=== PATIENT | male | born 2005 | race African-American/Black ===

== ENCOUNTER 2024-08-19 08:48 | Outpatient (REF) | payer OTHER, SELFPAY ==
--- NOTE | ~2024-08-19 | XR_ITS ---
EXAMINATION: XR CHEST CLINICAL INFORMATION: R05.9 - Cough, unspecified COMPARISON: None available. TECHNIQUE: 2 views of the chest were obtained. FINDINGS: No consolidation, pleural effusion or pneumothorax. Cardiomediastinal silhouette is normal. Osseous structures are intact. XR/XR chest 2V IMPRESSION: No acute airspace disease. Electronically signed by: Vahe Ly MD 08/19/2024 10:05 AM EDT
--- OUTSIDE RECORDS SUMMARY | 2024-08-19 10:02 | XMS_ITS | Clinical Summary ---
Author Organization [employer] Address [address] [place] [address] [address] [place] [address] Care Team Providers Care Sales Contractor Name Role Phone Dameon Sena MD Primary Care Provider [phone] Allergies Active Allergy Reactions Criticality Noted Date [...] patient's age to complete this topic Insurance [facility] [place] STANDARD [facility] Care Teams Sales Contractor Relationship Specialty Start Date End Date Dameon Sena MD [address] [place] [id number] PCP - General Pediatrics 08/12/23
== END 2024-08-19 08:49 | disposition home or self-care (01) ==
LOC: HO.HMGCX 08:48
PROVIDERS: Visit Provider Nurse Practitioner Family
DX: R05.9 Cough, unspecified (principal); Z20.89 Contact with and (suspected) exposure to other communicable diseases; R06.2 Wheezing
CPT/HCPCS: 71046; 99212

== ENCOUNTER → 2024-08-19 08:48 | Outpatient (AMB) | payer OTHER, SELFPAY ==
--- NOTE | 2024-08-19 08:50 | AM.OFFWIN_ITS ---
Intake Vital Signs 08/19/24 08:56 Height 5 ft 11 in Weight 233 lb BMI 32.5 BP 124/70 Blood Pressure Location Rt brachial Position Sitting Respiration 13 Pulse 70 Pulse Source Pulse Oximeter Temp 97.3 F Temp Source Oral Pulse Oximetry (%) 96 Oxygen Delivery Method Simple Mask Intake Visit Reasons: SINUS INFECTION/COUGH Intake Note: Patient c/o coughing, chest congestion x 1week. Patient brother got dx walking pneumonia last Friday Patient Tobacco Use Status: Never used Tobacco Meat Blender Required: No Allergies Penicillins Allergy (Severe, Verified 08/19/24 08:58) Unknown Medication List - Last Reconciled 08/19/24 by Aubree Mullen, DRAKE- No Known Home Meds Do you need a note to return to daycare/school/sports/work: No HPI HPI Comments History of Present Illness Details [facility] PCP Dr Sena at [facility] Peds History - The patient is a 18-year-old male pres enting with chest congestion for one week. Reports URI sx that started > 1 week ago. All sx have resolved w/ exception of the cough. - He notes that his brother had walking pneumonia diagnosed last Friday - Primary symptom is persistent coughing , and he reports no fever, chills, runny nose, or sore throat. - Hx of childhood asthma, only bothersom e during acute illness. does not have inhaler at home - he did not get a flu shot this year. - Initially used sinus medication (Alleg ra) without improvement in congestion. - Reports a penicillin allergy. - The patient is a non-smoker Physical Exam General: Awake, alert. No apparent distress Eyes: Sclera and conjunctiva clear bilaterally Nose: Nares w/ scant yellow drainage, turbinates edematous on R only, no sinus tenderness with palpation bilaterally Ears: Tympanic membranes intact and clear bilaterally Throat: Moist mucosa membrane, pharynx within normal limits Cardiovascular: Regular rate and rhythm Respiratory: coarse ins/exp wheeze RLL, congested cough w/o distress; other lung davis clear Discussion Notes I discussed with the patient the possibility of pneumonia as an underlying cause for his chest congestion and coughing. Due to the absence of fever and other typical flu-like symptoms, I recommended a chest x-ray to confirm the diagnosis. Unfortunately, our current location lacks x-ray facilities, so I explained the need to visit Ze I emphasized the quick turnaround of getting results within an hour to plan the appropriate interventions, potentially involving antibiotics. I advised on the use of a rescue inhaler, specifically levalbuterol, to manage airway clearance and reduce coughing. I instructed them on its usage, emphasizing scheduled relief rather than symptomatic use. I checked contact details for sharing results post-x-ray. Follow-up instructions were provided should the pneumonia be confirmed, involving primary care consultation for potential further evaluation. Travel directions, the importance of efficient imaging service access, and expected turnaround were shared. We also reviewed the significance of seeking follow-up if the x-ray report confirms pneumonia to ensure complete recovery. Assessment and Plan 1. Chest Congestion: Suspected pneumonia , pending chest x-ray for confirmation. Instructed patient on using albuterol inhaler regularly to facilitate airway clearance. Plan to review imaging results promptly for further management decisions, including potential antibiotic use. Follow-up to be determined based on x-ray findings. 2. Pneumonia: If x-ray confirms pneumoni a, plan includes antibiotics. Advise follow-up with primary care for a recheck in three to four weeks to ensure full recovery and exclude complications. Patient Instructions - Use your albuterol inhaler two puffs e very 4 to 6 hours. - Head to the specified location for you r chest x-ray. - Await a callback within an hour for x- ray results. - Seek follow-up with your primary care doctor if pneumonia is confirmed. - Monitor symptoms and report any worsen ing to your healthcare provider. Consent Patient was informed and verbally consented to the use of an ambient scribe for clinic note documentation during this visit. Total time spent caring for the patient today was 30 minutes. This includes time spent before the visit reviewing the chart, time spent during the visit, and time spent after the visit on documentation, reviewing laboratory results, diagnostic imaging, medications, performing a medically necessary evaluation, counseling on diagnoses, care coordination, ordering appropriate tests, ordering appropriate medications, review of tests performed by other providers, reporting test results with the patient, communication with other healthcare providers. [facility] Social History Patient Tobacco Use Status: Never used Tobacco Physical Exam Vital Signs: Last Vital Signs Temp 97.3 F 08/19/24 08:56 Pulse 70 08/19/24 08:56 Resp 13 08/19/24 08:56 BP 124/70 08/19/24 08:56 Pulse Ox 96 08/19/24 08:56 Oxygen Delivery Method Simple Mask 08/19/24 08:56 BMI result Body Mass Index 32.5 Assessment & Plan Assessment & Plan (1) Cough: Code(s): R05.9 - Cough, unspecified Qualifiers: Cough type: acute Qualified Code(s): R05.1 - Acute cough (2) Exposure to pneumonia: Code(s): Z20.89 - Contact with and (suspected) exposure to other communicable diseases (3) Wheezing: Code(s): R06.2 - Wheezing (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 Orders: Orders XR chest 2V Today R05.9 - Cough, unspecified, R06.2 - Wheezing, Z20.89 - Contact with and (suspected) exposure to other communicable diseases Medications: New levalbuterol tartrate 45 mcg/actuation 2 puffs inhalation Q4-6H PRN 15 grams 0RF shortness of breath Patient Instructions: Patient Instructions - Use your albuterol inhaler two puffs every 4 to 6 hours. - Head to the specified location for your chest x-ray. - Await a callback within an hour for x-ray results. - Seek follow-up with your primary care doctor if pneumonia is confirmed. 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
[2024-08-19 08:56] VITALS: BP 124/70; PULSE 70; RESP 13; TEMP 36.3; O2SAT 96; BMI 32.5
--- OUTSIDE RECORDS SUMMARY | 2024-08-19 08:57 | XMS_ITS | Clinical Summary ---
Author Organization [employer] Address [address] [place] [address] [address] [place] [address] Care Team Providers Care Company Pilot Name Role Phone Dameon Sena MD Primary Care Provider [phone] Allergies Active Allergy Reactions Criticality Noted Date Comments Penicillin G Unknown 04/15/2022 Medications No known medications Active Problems Problem Noted Date Diagnosed Date Exotropia, alternating 04/15/2022 Resolved Problems Problem Noted Date Diagnosed Date Resolved Date Glaucoma suspect, bilateral 04/15/2022 04/23/2022 Social History Tobacco Use Types Packs/Day Years Used Date Smoking Tobacco: Never Tobacco Cessation:Counseling Given: Not Answered Comments:Marijuana every once in a while Sex and Gender Information Value Date Recorded Sex Assigned at Male 06/17/2022 11:01 AM EST Legal Sex Male 8:35 PM EDT Gender Identity Male 06/17/2022 11:01 AM EST Sexual Orientation Choose not to disclose 2022 11:01 AM EST Last Filed Vital Signs Vital Sign Reading Time Taken Comments Blood Pressure 110/72 08/14/2023 2:43 PM EDT Pulse - - Temperature 36.2 ??C (97.1 ??F) 08/14/2023 2:43 PM ED T Respiratory Rate - - Oxygen Saturation - - Inhaled Oxygen Concentration - - Weight - - Height - - Body Mass Index - - Plan of Treatment Health Maintenance Due Date Last Done Comments Chlamydia and Gonorrhea Screening 2003 Depression Screening 2003 HIV Screening 2003 SDOH Screening 2003 Alcohol/Substance Use Screening 2015 Tobacco Screening 2015 Family Planning (PISQ) 12/11/2018 Hepatitis C Screening 12/11/2021 COVID-19 Vaccine ( season) 2024 Influenza Vaccine (#1) 2024 6, 03/23/2014, 02/05/2013 DTaP/Tdap/Td Vaccines (7 - Td or Tdap) 12/14/2025 12/15/2015, 10/12/2008, 10/28/2005, Additional history exists Zoster Vaccines (1 of 2) 12/11/2053 RSV Patients and Patients Aged 60 years or older (1 - 1-dose 75+ series) 12/11/2078 Hepatitis B Vaccines Completed 07/20/2004, 01/25/2004, 2003 HIB Vaccines Completed 11/26/2006, 01/17, 07/20/2004, Additional history exists IPV Vaccines Completed 10/12/2008, 10/17, 04/20/2004, Additional history exists Pneumococcal Vaccine: Pediatrics (0 to 5 Years) and At-Risk Patients (6 to 49) Years) Aged Out 10/09/2010, 10/27/2006, 11/26/2004, Additional history exists No longer eligible based on patient's age to complete this topic HPV Vaccines Completed 05/25/2019, 10/30/2018 Meningococcal Vaccine Completed 04/04/2020, 016 Hepatitis A Vaccines Completed 01/18/2021, 04/04/20 20 RSV under 20 months Aged Out No longe r eligible based on patient's age to complete this topic Rotavirus Vaccines Aged Out No longer eligible based on patient's age to complete this topic Insurance [facility] [place] STANDARD [facility] A[facility] Care Teams Company Pilot Relationship Specialty Start Date End Date Dameon Sena MD [address] [place] [id number] PCP - General Pediatrics 08/12/23
== END ==
LOC: HO.HMCWIW 08:48
PROVIDERS: Visit Provider Nurse Practitioner Family
DX: R05.1 Acute cough (principal); Z20.89 Contact with and (suspected) exposure to other communicable diseases; J45.20 Mild intermittent asthma, uncomplicated

== ENCOUNTER → 2024-08-19 09:36 | Outpatient (BNV) | payer OTHER, SELFPAY | PROVIDERS: Visit Provider Radiology Diagnostic Radiology | DX: R05.9 Cough, unspecified (principal) | CPT/HCPCS: 71046 ==

== ENCOUNTER 2025-03-12 12:42 | Outpatient (AMB) | payer OTHER, SELFPAY ==
--- OUTSIDE RECORDS SUMMARY | 2025-03-12 12:45 | XMS_ITS | Clinical Summary ---
Author Organization [employer] Address [address] [place] [address] [address] [place] [address] Care Team Providers Care Automatic Door Mechanic Name Role Phone Dameon Sena MD Primary Care Provider [phone] Allergies Active Allergy Reactions Criticality Noted Date [...] Sign Reading Time Taken Comments Blood Pressure 122/84 11/03/2024 3:48 PM EDT Pulse - - Temperature 36.2 C (97.1 F) 08/14/2023 2:43 PM EDT Respiratory Rate - - Oxygen Saturation - - Inhaled Oxygen Concentration - - Weight - - Height - - Body Mass Index - - Plan of Treatment Health Maintenance Due Date Last Done Comments Chlamydia and Gonorrhea Screening 2003 Depression Screening 2003 SDOH Screening 2003 Disability Screening 2003 Alcohol/Substance Use Screening 2015 Family Planning (PISQ) 12/11/2018 Meningococcal B Vaccine (1 of 2 - Standard) 2019 COVID-19 Vaccine ( season) 2025 Influenza Vaccine (#1) 2025 6, 03/23/2014, 02/05/2013 Tobacco Screening 11/03/2025 11/03/2024 DTaP/Tdap/Td Vaccines (7 - Td or Tdap) [...] Years) and At-Risk Patients (6 to 49) Years Aged Out 10/09/2010, 10/27/2006, 11/26/2004, Additional history exists No longer eligible based on patient's age to complete this topic HPV Vaccines Completed 05/25/2019, 10/30/2018 Meningococcal Vaccine Completed 04/04/2020, Hepatitis A Vaccines Completed 01/18/2021, 04/04/20 20 HIV Screening Completed 04/28/2023 Hepatitis C Screening Completed 04/28/2023 RSV under 20 months Aged Out No longe r eligible based on patient's age to complete this topic Rotavirus Vaccines Aged Out No longer eligible based on patient's age to complete this topic Insurance [facility] STANDARD [facility] STANDARD [employer] Care Teams Automatic Door Mechanic Relationship Specialty Start Date End Date Dameon Sena MD [address] [place] [id number] PCP - General Pediatrics 08/12/23
--- OUTSIDE RECORDS SUMMARY | 2025-03-12 12:45 | XMS_ITS | Clinical Summary ---
Author Organization [facility] Address [address] [place] [phone] Phone Care Team Providers Care Pantry Worker Name Role Phone Nikki Merchant MD Primary Care Provid er Social History Tobacco Use Types Packs/Day Years Used Date Smoking Tobacco: Never Assessed Education Answer Date Recorded Are you interested in more education? Not on jt e 09/13/2022 Are you concerned about learning? Not on file 09/13/2022 No 09/13/2022 No 09/13/2022 Digital Access Answer Date Recorded No 10/14/2022 No 10/14/2022 No 10/14/2022 Reliable internet access at home? Not on file 10/14/2022 Device with a working camera? Not on file Sex and Gender Information Value Date Recorded Sex Assigned at Not on file Legal Sex Male 12:35 PM EST Gender Identity Not on file Sexual Orientation Not on file Plan of Treatment Not on file Medical Devices Not on file Insurance [facility] [place] [address] [place] [address] [address] [place] [address] [facility] [facility] ACO [facility] A[facility] Care Teams Pantry Worker Relationship Specialty Start Date End Date Nikki Merchant MD [address] [id number] PCP - General Internal Medicine 07/12/15 Additional Source Comments The information contained in this document represents components of the legal health record. It is not the complete legal health record.[facility]
[2025-03-12 12:48] VITALS: BP 130/78; PULSE 86; TEMP 36.9; O2SAT 95
--- NOTE | 2025-03-12 12:48 | AM.OFFWIN_ITS ---
Intake Vital Signs 03/12/25 12:48 Height 5 ft 11 in BMI Reason not done Patient refused/unable BP 130/78 Blood Pressure Location Lt brachial Position Sitting Pulse 86 Pulse Source Pulse Oximeter Temp 98.5 F Temp Source Oral Pulse Oximetry (%) 95 Oxygen Delivery Method Room Air Intake Visit Reasons: EP Cough/ asthma Intake Note: pt is here for cough 1x day, has asthma which is causing difficulty breathing Patient Tobacco Use Status: Never used Tobacco Allergies Penicillins Allergy (Severe, Verified 03/12/25 12:59) Unknown Medication List - Last Reconciled 03/12/25 by Aubree Mullen, ALUMINUM MOLDER- clonidine HCl 0.2 mg PO BEDTIME fluticasone furoate 50 mcg/actuation (Arnuity Ellipta) 1 inh inhalation Q24H levalbuterol tartrate 45 mcg/actuation 2 puffs inhalation Q4-6H PRN magnesium oxide 400 mg PO DAILY riboflavin (vitamin B2) (Vitamin B-2) 100 mg PO BID triamcinolone acetonide 0.1% appl topical BID Do you need a note to return to daycare/school/sports/work: Yes HPI HPI Comments History of Present Illness Details History of Present Illness The patient is a 19-year-old male presenting with exacerbation of asthma. Asthma: - History of asthma; presents with cough and wheezing. - Wheezing increased over the last day. - Inhaler not used due to being misplace d. - Recent onset post-illness Review of Systems - Respiratory: Reports wheezing and coug h. Denies fever or chills. - Other systems: Not discussed. Physical Exam General: Well developed, well nourished, in no acute distress. Appears stated age. Head: Normocephalic, atraumatic. Eyes: Pupils are equal, round and reactive to light and accommodation. Conjunctivae are clear. Vision grossly normal. Lungs: Ins/exp Wheezing noted throughout, tight cough, no distress. No rales or rhonchi. Good air flow in all davis. Heart: Regular rate and rhythm. No murmurs, click, rubs or gallops are noted. Psych: Mood and affect appropriate Discussion Notes I discussed the patient's asthma exacerbation and the importance of having his inhaler available for use. I emphasized the need to start prednisone to manage symptoms. I provided education on using the rescue inhaler every six hours as needed for symptom relief. The potential use of prednisone was detailed, highlighting that if adverse reactions occur, discontinuation would be the option. The patient was advised to take prednisone with food to minimize gastrointestinal side effects. I also outlined that if the prednisone therapy is not well tolerated, he could stop it. Follow-up care was not scheduled but the patient was informed to seek attention if symptoms worsen or fail to improve. Patient was given time to ask questions. All questions were answered to their satisfaction. Assessment and Plan 1. Asthma - Initiate prednisone 1 tablet daily for 5 days. - Use rescue inhaler 2 puffs every 6 erin rs PRN, refill sent to pharmacy - Monitor for improvement; discontinue p rednisone if side effects present. Patient Instructions - Use inhaler: 2 puffs every 6 hours as needed. - Take prednisone 1 tablet daily for 5 d ays with food. - sales support specialist prescriptions at the pharmacy. - Stop prednisone if it makes you feel u nwell. - Call if breathing gets worse or sympto ms don't get better. Consent Patient was informed and verbally consented to the use of an ambient scribe for clinic note documentation during this visit. [facility] Social History Patient Tobacco Use Status: Never used Tobacco Physical Exam Vital Signs: Last Vital Signs Temp 98.5 F 03/12/25 12:48 Pulse 86 03/12/25 12:48 BP 130/78 03/12/25 12:48 Pulse Ox 95 03/12/25 12:48 Oxygen Delivery Method Room Air 03/12/25 12:48 Assessment & Plan Assessment & Plan (1) Cold-induced asthma: Code(s): J45.909 - Unspecified asthma, uncomplicated Qualifiers: Asthma severity: mild Asthma persistence: intermittent Asthma complication type: uncomplicated Qualified Code(s): J45.20 - Mild intermittent asthma, uncomplicated Plan . Medications: New prednisone 10 mg PO DAILY 5 tabs 0RF Refilled levalbuterol tartrate 45 mcg/actuation 2 puffs inhalation Q4-6H PRN 15 grams 0RF shortness of breath Coding Level of Care Code Est Pt Level 3 (30898) Diagnoses Mild intermittent cold-induced asthma without complication J45.20 Asthma severity: mild Asthma persistence: intermittent Asthma complication type: uncomplicated
== END 2025-03-12 13:11 | disposition home or self-care (01) ==
PROVIDERS: PCP Nurse Practitioner Family; Visit Provider Nurse Practitioner Family
DX: J45.20 Mild intermittent asthma, uncomplicated (principal)

== ENCOUNTER → 2025-03-12 12:42 | Outpatient (BNVA) | payer OTHER, SELFPAY | PROVIDERS: PCP Nurse Practitioner Family; Visit Provider Nurse Practitioner Family | DX: J45.21 Mild intermittent asthma with (acute) exacerbation (principal) | CPT/HCPCS: 99212 ==